=== PATIENT | female | born 1945 | race Caucasian/White ===

== ENCOUNTER 2021-01-04 10:28 | Inpatient (IN) | payer OTHER ==
[~2021-01-04] VITALS: Ht 157.5 cm; Wt 82.5 kg
[2021-01-04] MEDS ORDERED: SODIUM CHLORIDE 0.9% 500 ML IV ONE (10:45)
[2021-01-04 11:54] LABS: Basophils # (auto) 0 10 ^3/uL (0-0.2); Basophils % (auto) 0.1 % (0.0-2.0); Eosinophils # (auto) 0 10 ^3/uL (0-0.8); Hematocrit 34.9 % (36.0-46.0); Hemoglobin 11.5 g/dL (12.2-16.2); Lymphocytes # (auto) 0.5 10 ^3/uL (0.4-5.4); Mean Corpuscular Hemoglobin 29.3 pg (28.0-32.0); Mean Corpuscular Hgb Conc. 32.8 g/dL (32.0-36.0); Mean Corpuscular Volume 89.2 fL (80.0-100.0); Monocytes # (auto) 0.5 10 ^3/uL (0-1.3); Monocytes % (auto) 2.9 % (0.0-12.0); Neutrophils # (auto) 15.5 10 ^3/uL (1.6-8.6); Platelet Count (auto) 177 10^3/uL (140-450); Red Blood Cells 3.92 10^6/uL (4.0-5.20); Red Cell Distribution Width 15.1 % (11.8-14.3); White Blood Cell 16.5 10^3/uL (4.4-10.8)
[2021-01-04 12:15] LABS: Albumin 2.9 g/dL (3.4-5.0); Calcium 7.9 mg/dL (8.5-10.1); Potassium 3.7 mmol/L (3.5-5.1)
[2021-01-04 12:19] LABS: BUN/Creatinine Ratio 22.2; Bilirubin, Total 1.4 mg/dL (0.2-1.0)
[2021-01-04] MEDS ORDERED: cefTRIAXone 1GM/50ML D5W 50 ML IV ONE (12:30)
[2021-01-04 13:41] LABS: Urine Bacteria FEW /hpf (None Seen); Urine Blood TRACE /uL (Negative); Urine Specific Gravity 1.015 (1.001-1.035); Urine WBC 68 /hpf (0 - 5); Urine WBC Clumps PRESENT /hpf (None Seen)
[2021-01-04] MEDS ORDERED: ACETAMINOPHEN 325 MG TAB PO ONE (15:00)
[2021-01-04] MEDS ORDERED: MORPHINE SULF INJ 2 MG/ML SYRINGE 1ML IV ONE (19:45)
[2021-01-04] MEDS ORDERED: ONDANSETRON HCL 4 MG/2 ML VIAL IV ONE (19:45)
[2021-01-04] MEDS ORDERED: NITROGLYCERIN 0.4 MG SL TAB SL PRN (21:30)
[2021-01-04] MEDS ORDERED: TEMAZEPAM 15 MG CAP PO PRN (21:30)
[2021-01-04] MEDS ORDERED: ALBUMIN 5% 250 ML IV ONE (21:30)
[2021-01-04] MEDS ORDERED: MORPHINE SULF INJ 2 MG/ML SYRINGE 1ML IV PRN (21:30)
[2021-01-04] MEDS ORDERED: ONDANSETRON HCL 4 MG/2 ML VIAL IV PRN (21:30)
[2021-01-04] MEDS: FAMOTIDINE 20 MG TAB PO SCH (22:33)
[2021-01-04] MEDS: SODIUM CHLORIDE 0.9% 1,000 ML IV SCH (22:33)
[2021-01-04 23:11] VITALS: BP 114/54
[2021-01-05 05:00] VITALS: BP 106/50
[2021-01-05 06:42] LABS: Basophils # (auto) 0 10 ^3/uL (0-0.2); Basophils % (auto) 0.1 % (0.0-2.0); Eosinophils # (auto) 0.1 10 ^3/uL (0-0.8); Eosinophils % (auto) 0.3 % (0.0-7.0); Hematocrit 27.6 % (36.0-46.0); Hemoglobin 9.2 g/dL (12.2-16.2); Lymphocytes # (auto) 0.8 10 ^3/uL (0.4-5.4); Lymphocytes % (auto) 4.5 % (10.0-50.0); Mean Corpuscular Hemoglobin 30.6 pg (28.0-32.0); Mean Corpuscular Hgb Conc. 33.4 g/dL (32.0-36.0); Mean Corpuscular Volume 91.5 fL (80.0-100.0); Monocytes # (auto) 0.6 10 ^3/uL (0-1.3); Monocytes % (auto) 3.2 % (0.0-12.0); Neutrophils # (auto) 15.8 10 ^3/uL (1.6-8.6); Neutrophils % (auto) 91.9 % (37.0-80.0); Platelet Count (auto) 137 10^3/uL (140-450); Red Blood Cells 3.01 10^6/uL (4.0-5.20); Red Cell Distribution Width 15.3 % (11.8-14.3); White Blood Cell 17.2 10^3/uL (4.4-10.8)
[2021-01-05 07:02] LABS: Albumin 2.2 g/dL (3.4-5.0); Calcium 6.6 mg/dL (8.5-10.1); Potassium 3.5 mmol/L (3.5-5.1)
[2021-01-05 07:06] LABS: BUN/Creatinine Ratio 26.4; Total Protein 4.7 g/dL (6.4-8.2)
[2021-01-05 09:00] VITALS: BP 94/44
[2021-01-05] MEDS: cefTRIAXone 1GM/50ML D5W 50 ML IV SCH (09:24)
[2021-01-05] MEDS: FAMOTIDINE 20 MG TAB PO SCH ×2 (09:25→22:14)
[2021-01-05] MEDS ORDERED: ENOXAPARIN SOD 40 MG/0.4 ML SYRINGE SC SCH (10:00)
[2021-01-05] MEDS ORDERED: ATOR20TA50 PO (10:25)
[2021-01-05] MEDS ORDERED: CARV12.544 PO (10:25)
[2021-01-05] MEDS ORDERED: LOSA25TA38 PO (10:25)
[2021-01-05] MEDS ORDERED: HYDR-4902 PO (10:25)
[2021-01-05] MEDS ORDERED: PANT40TA2 PO (10:25)
[2021-01-05] MEDS ORDERED: FURO1TAB31 PO (10:25)
[2021-01-05] MEDS ORDERED: POTA8TAB2 PO (10:25)
[2021-01-05 11:34] VITALS: BP 124/50
[2021-01-05] MEDS: HYDROcodone-ACET 5/325MG TAB PO PRN ×2 (11:34→20:17)
[2021-01-05 13:00] VITALS: BP 109/49
[2021-01-05] MEDS: SODIUM CHLORIDE 0.9% 1,000 ML IV SCH (15:37)
[2021-01-05] MEDS: ACETAMINOPHEN 325 MG TAB PO PRN (15:37)
[2021-01-05 17:00] VITALS: BP 99/44
[2021-01-05 22:00] VITALS: BP 109/55
[2021-01-06] MEDS: ACETAMINOPHEN 325 MG TAB PO PRN (00:45)
[2021-01-06 05:00] VITALS: BP 124/54
[2021-01-06] MEDS: HYDROcodone-ACET 5/325MG TAB PO PRN ×2 (06:15→10:30)
[2021-01-06] MEDS: SODIUM CHLORIDE 0.9% 1,000 ML IV SCH (06:50)
[2021-01-06 06:52] LABS: Basophils # (auto) 0 10 ^3/uL (0-0.2); Basophils % (auto) 0.4 % (0.0-2.0); Eosinophils # (auto) 0.3 10 ^3/uL (0-0.8); Eosinophils % (auto) 2.2 % (0.0-7.0); Hematocrit 28.5 % (36.0-46.0); Hemoglobin 9.5 g/dL (12.2-16.2); Lymphocytes # (auto) 0.9 10 ^3/uL (0.4-5.4); Lymphocytes % (auto) 7.9 % (10.0-50.0); Mean Corpuscular Hgb Conc. 33.4 g/dL (32.0-36.0); Mean Corpuscular Volume 89.9 fL (80.0-100.0); Monocytes # (auto) 0.5 10 ^3/uL (0-1.3); Monocytes % (auto) 4.3 % (0.0-12.0); Neutrophils # (auto) 10.2 10 ^3/uL (1.6-8.6); Neutrophils % (auto) 85.2 % (37.0-80.0); Nucleated Red Blood Cells % 0.1 %; Platelet Count (auto) 139 10^3/uL (140-450); Red Blood Cells 3.17 10^6/uL (4.0-5.20); Red Cell Distribution Width 15.2 % (11.8-14.3)
[2021-01-06 07:03] LABS: Calcium 7.7 mg/dL (8.5-10.1); Potassium 3.6 mmol/L (3.5-5.1)
[2021-01-06 09:00] VITALS: BP 134/79
[2021-01-06] MEDS: cefTRIAXone 1GM/50ML D5W 50 ML IV SCH (09:00)
[2021-01-06] MEDS: FAMOTIDINE 20 MG TAB PO SCH (09:38)
[2021-01-06 13:00] VITALS: BP 115/76
[2021-01-06 17:21] VITALS: BP 105/51
[2021-01-06 22:00] VITALS: BP 124/64
[2021-01-07] MEDS: HYDROcodone-ACET 5/325MG TAB PO PRN ×2 (01:24→13:53)
[2021-01-07 05:00] VITALS: BP 112/61
[2021-01-07 07:18] LABS: Basophils # (auto) 0 10 ^3/uL (0-0.2); Basophils % (auto) 0.3 % (0.0-2.0); Eosinophils # (auto) 0.3 10 ^3/uL (0-0.8); Eosinophils % (auto) 3.5 % (0.0-7.0); Hematocrit 31.9 % (36.0-46.0); Hemoglobin 10.8 g/dL (12.2-16.2); Lymphocytes # (auto) 1.2 10 ^3/uL (0.4-5.4); Lymphocytes % (auto) 13.2 % (10.0-50.0); Mean Corpuscular Hemoglobin 30.3 pg (28.0-32.0); Mean Corpuscular Hgb Conc. 33.8 g/dL (32.0-36.0); Mean Corpuscular Volume 89.8 fL (80.0-100.0); Monocytes # (auto) 0.4 10 ^3/uL (0-1.3); Neutrophils # (auto) 7.5 10 ^3/uL (1.6-8.6); Platelet Count (auto) 190 10^3/uL (140-450); Red Blood Cells 3.55 10^6/uL (4.0-5.20); Red Cell Distribution Width 15.5 % (11.8-14.3); White Blood Cell 9.5 10^3/uL (4.4-10.8)
[2021-01-07] MEDS: cefTRIAXone 1GM/50ML D5W 50 ML IV SCH (08:36)
[2021-01-07 09:00] VITALS: BP 143/76
[2021-01-07] MEDS ORDERED: FAMOTIDINE 20 MG TAB PO SCH (10:00)
[2021-01-07 11:53] VITALS: BP 122/72
[2021-01-07 13:00] VITALS: BP 144/85
== END 2021-01-07 14:30 | disposition home or self-care (01) | DRG 871 ==
LOC: EDBD 10:28 → ER 10:28 → TELE 21:20 → TELE-CENTR 23:11
PROVIDERS: ADMIT Nurse Practitioner; ATTEND Internal Medicine
DX: A41.9 Sepsis, unspecified organism (principal); E43 Unspecified severe protein-calorie malnutrition; N39.0 Urinary tract infection, site not specified; I50.42 Chronic combined systolic (congestive) and diastolic (congestive) heart failure; Z68.41 Body mass index [BMI] 40.0-44.9, adult; E66.01 Morbid (severe) obesity due to excess calories; Z20.822 Contact with and (suspected) exposure to COVID-19; D64.9 Anemia, unspecified; E78.5 Hyperlipidemia, unspecified; I11.0 Hypertensive heart disease with heart failure; Z83.3 Family history of diabetes mellitus; Z90.710 Acquired absence of both cervix and uterus; Z88.8 Allergy status to other drugs, medicaments and biological substances; Z85.3 Personal history of malignant neoplasm of breast
CPT/HCPCS: 36415; 71045; 80048; 80053; 81001; 83605; 83735; 85025; 85049; 87040; 87086; 87426; 93005; 93306; 96365; 96372; 97163; G0378; J0696; J2405

== ENCOUNTER 2022-02-01 11:41 | Inpatient (IN) | payer OTHER ==
[~2022-02-01] VITALS: Ht 157.5 cm; Wt 73.1 kg
[~2022-02-01 11:41] MED LIST: ATOR20TA50 PO; CARV12.544 PO; FURO1TAB31 PO; HYDR-4902 PO; LOSA25TA38 PO; PANT40TA2 PO; POTA8TAB2 PO
[2022-02-01 14:05] LABS: Basophils # (auto) 0 10 ^3/uL (0-0.2); Basophils % (auto) 0.1 % (0.0-2.0); Eosinophils # (auto) 0.3 10 ^3/uL (0-0.8); Eosinophils % (auto) 1.3 % (0.0-7.0); Hemoglobin 9.1 g/dL (12.2-16.2); Lymphocytes # (auto) 0.9 10 ^3/uL (0.4-5.4); Lymphocytes % (auto) 4.2 % (10.0-50.0); Mean Corpuscular Hemoglobin 30.1 pg (28.0-32.0); Mean Corpuscular Hgb Conc. 32.5 g/dL (32.0-36.0); Mean Corpuscular Volume 92.5 fL (80.0-100.0); Monocytes # (auto) 0.4 10 ^3/uL (0-1.3); Monocytes % (auto) 1.6 % (0.0-12.0); Neutrophils # (auto) 19.9 10 ^3/uL (1.6-8.6); Neutrophils % (auto) 92.8 % (37.0-80.0); Red Blood Cells 3.03 10^6/uL (4.0-5.20); White Blood Cell 21.5 10^3/uL (4.4-10.8)
[2022-02-01 14:37] LABS: Calcium 7.3 mg/dL (8.5-10.1); Magnesium 2.4 mg/dL (1.6-2.6)
[2022-02-01 14:40] LABS: Total Protein 5.1 g/dL (6.4-8.2)
[2022-02-01 14:40] LABS: Urine Bacteria MOD /hpf (None Seen); Urine Blood Negative /uL (Negative); Urine Specific Gravity 1.015 (1.001-1.035); Urine WBC 6 /hpf (0 - 5)
[2022-02-01] MEDS ORDERED: AZITHROMYCIN 500MG/ 250ML 250 ML IV ONE (16:15)
[2022-02-01] MEDS ORDERED: cefTRIAXone 1GM/50ML D5W 50 ML IV ONE (16:15)
[2022-02-01] MEDS: NOREPINEPHRINE 8 MG/250ML KIT 250 ML IV SCH (16:31)
[2022-02-01] MEDS ORDERED: PROMETHAZINE W/CODEINE 5 ML ORAL SYRUP PO ONE (16:45)
[2022-02-01] MEDS ORDERED: SODIUM CHLORIDE 0.9% 500 ML IV ONE (17:00)
[2022-02-01] MEDS ORDERED: MORPHINE SULFATE INJ 2 MG/ml SYRG IV PRN (18:00)
[2022-02-01] MEDS ORDERED: ACETAMINOPHEN 325 MG TAB PO PRN (18:00)
[2022-02-01] MEDS: SODIUM CHLORIDE 0.9% 1,000 ML IV SCH (18:57)
[2022-02-01] MEDS: HYDROcodone-ACET 5/325MG TAB PO PRN (20:12)
[2022-02-02 02:08] LABS: Basophils # (auto) 0 10 ^3/uL (0-0.2); Basophils % (auto) 0.2 % (0.0-2.0); Eosinophils # (auto) 0.4 10 ^3/uL (0-0.8); Eosinophils % (auto) 1.8 % (0.0-7.0); Lymphocytes % (auto) 4.3 % (10.0-50.0); Mean Corpuscular Hgb Conc. 32.4 g/dL (32.0-36.0); Mean Corpuscular Volume 92.6 fL (80.0-100.0); Monocytes # (auto) 0.8 10 ^3/uL (0-1.3); Monocytes % (auto) 3.5 % (0.0-12.0); Neutrophils # (auto) 20.1 10 ^3/uL (1.6-8.6); Neutrophils % (auto) 90.2 % (37.0-80.0); Nucleated Red Blood Cells % 0.1 %; Red Blood Cells 3.35 10^6/uL (4.0-5.20); Red Cell Distribution Width 14.1 % (11.8-14.3); White Blood Cell 22.3 10^3/uL (4.4-10.8)
[2022-02-02] MEDS ORDERED: ONDANSETRON HCL 4 MG/2 ML VIAL IV PRN (02:15)
[2022-02-02 02:26] LABS: Calcium 7.7 mg/dL (8.5-10.1); Magnesium 2.3 mg/dL (1.6-2.6)
[2022-02-02] MEDS ORDERED: ENOXAPARIN SOD 100 MG/1 ML SYRINGE SC ONE (03:00)
[2022-02-02 05:47] LABS: Basophils # (auto) 0 10 ^3/uL (0-0.2); Basophils % (auto) 0.1 % (0.0-2.0); Eosinophils # (auto) 0.3 10 ^3/uL (0-0.8); Eosinophils % (auto) 1.5 % (0.0-7.0); Hematocrit 30.8 % (36.0-46.0); Hemoglobin 10.1 g/dL (12.2-16.2); Lymphocytes # (auto) 0.8 10 ^3/uL (0.4-5.4); Lymphocytes % (auto) 3.7 % (10.0-50.0); Mean Corpuscular Hemoglobin 30.4 pg (28.0-32.0); Mean Corpuscular Hgb Conc. 32.7 g/dL (32.0-36.0); Mean Corpuscular Volume 92.8 fL (80.0-100.0); Monocytes # (auto) 0.8 10 ^3/uL (0-1.3); Monocytes % (auto) 3.8 % (0.0-12.0); Neutrophils # (auto) 19.5 10 ^3/uL (1.6-8.6); Neutrophils % (auto) 90.9 % (37.0-80.0); Red Blood Cells 3.32 10^6/uL (4.0-5.20); Red Cell Distribution Width 14.1 % (11.8-14.3); White Blood Cell 21.4 10^3/uL (4.4-10.8)
[2022-02-02 05:54] LABS: Albumin 2.2 g/dL (3.4-5.0); Calcium 7.7 mg/dL (8.5-10.1); Potassium 3.7 mmol/L (3.5-5.1)
[2022-02-02 05:58] LABS: BUN/Creatinine Ratio 31.9; Bilirubin, Total 0.9 mg/dL (0.2-1.0); Total Protein 5.7 g/dL (6.4-8.2)
[2022-02-02] MEDS: NOREPINEPHRINE 8 MG/250ML KIT 250 ML IV SCH ×2 (08:49)
[2022-02-02] MEDS: ASPirin 81 mg TAB PO SCH (09:51)
[2022-02-02] MEDS ORDERED: cefTRIAXone 1GM/50ML D5W 50 ML IV SCH (10:00)
[2022-02-02] MEDS ORDERED: AZITHROMYCIN 500MG/ 250ML 250 ML IV SCH (10:00)
[2022-02-02] MEDS ORDERED: VANCOMYCIN PER PHARMACY 0 MG IV SCH (11:45)
[2022-02-02] MEDS ORDERED: VANCOMYCIN 1GM/250ML 250 ML IV ONE (12:45)
[2022-02-02] MEDS: SODIUM CHLORIDE 0.9% 1,000 ML IV SCH ×2 (12:47→20:42)
[2022-02-02] MEDS: CEFEPIME 1GM/ 50ML 50 ML IV SCH ×3 (14:00→23:12)
[2022-02-02] MEDS ORDERED: CARV3.1240 PO (21:14)
[2022-02-02 21:38] VITALS: BP 87/45
[2022-02-02 22:00] VITALS: BP 96/47
[2022-02-02 22:55] VITALS: BP 102/47
[2022-02-02] MEDS: ATORVASTATIN 20 MG TAB PO SCH (23:08)
[2022-02-03 05:00] VITALS: BP 123/56
[2022-02-03 05:25] LABS: Urine Bacteria FEW /hpf (None Seen); Urine Blood Negative /uL (Negative); Urine Specific Gravity 1.011 (1.001-1.035); Urine WBC 2 /hpf (0 - 5)
[2022-02-03] MEDS: VANCOMYCIN 1GM/250ML 250 ML IV SCH (06:18)
[2022-02-03] MEDS: HYDROcodone-ACET 5/325MG TAB PO PRN ×2 (06:20→15:35)
[2022-02-03] MEDS: CEFEPIME 1GM/ 50ML 50 ML IV SCH ×3 (07:00→22:50)
[2022-02-03 09:00] VITALS: BP 107/40
[2022-02-03] MEDS: ASPirin 81 mg TAB PO SCH (10:01)
[2022-02-03 13:00] VITALS: BP 112/56
[2022-02-03 13:30] LABS: Urine Bacteria FEW /hpf (None Seen); Urine Blood Negative /uL (Negative); Urine Specific Gravity 1.016 (1.001-1.035); Urine WBC 3 /hpf (0 - 5)
[2022-02-03] MEDS ORDERED: FURO20TA3 PO (14:54)
[2022-02-03 17:00] VITALS: BP 94/42
[2022-02-03 21:50] VITALS: BP 100/57
[2022-02-03] MEDS: ATORVASTATIN 20 MG TAB PO SCH (22:18)
[2022-02-04 04:47] VITALS: BP 113/68
[2022-02-04] MEDS: VANCOMYCIN 1GM/250ML 250 ML IV SCH (05:52)
[2022-02-04] MEDS: CEFEPIME 1GM/ 50ML 50 ML IV SCH ×3 (06:55→21:29)
[2022-02-04 07:16] LABS: Basophils # (auto) 0 10 ^3/uL (0-0.2); Basophils % (auto) 0.5 % (0.0-2.0); Eosinophils # (auto) 0.3 10 ^3/uL (0-0.8); Eosinophils % (auto) 4.5 % (0.0-7.0); Hematocrit 28.5 % (36.0-46.0); Hemoglobin 9.4 g/dL (12.2-16.2); Lymphocytes # (auto) 0.8 10 ^3/uL (0.4-5.4); Lymphocytes % (auto) 14.2 % (10.0-50.0); Mean Corpuscular Hemoglobin 30.2 pg (28.0-32.0); Mean Corpuscular Hgb Conc. 32.9 g/dL (32.0-36.0); Mean Corpuscular Volume 91.8 fL (80.0-100.0); Monocytes # (auto) 0.8 10 ^3/uL (0-1.3); Monocytes % (auto) 12.7 % (0.0-12.0); Neutrophils # (auto) 4.1 10 ^3/uL (1.6-8.6); Neutrophils % (auto) 68.1 % (37.0-80.0); Nucleated Red Blood Cells % 0.1 %; Red Cell Distribution Width 13.9 % (11.8-14.3)
[2022-02-04 07:36] LABS: Calcium 8.3 mg/dL (8.5-10.1); Potassium 3.4 mmol/L (3.5-5.1)
[2022-02-04 07:39] LABS: BUN/Creatinine Ratio 20.8
[2022-02-04 07:50] VITALS: BP 118/59
[2022-02-04 09:11] VITALS: BP 118/59
[2022-02-04] MEDS: HYDROcodone-ACET 5/325MG TAB PO PRN ×2 (09:47→21:29)
[2022-02-04] MEDS: ASPirin 81 mg TAB PO SCH (09:47)
[2022-02-04 13:00] VITALS: BP 142/73
[2022-02-04 17:11] VITALS: BP 113/57
[2022-02-04] MEDS: ATORVASTATIN 20 MG TAB PO SCH (21:29)
[2022-02-04 22:00] VITALS: BP 125/73
[2022-02-05 05:00] VITALS: BP 136/85
[2022-02-05] MEDS: VANCOMYCIN 1GM/250ML 250 ML IV SCH (06:20)
[2022-02-05] MEDS: CEFEPIME 1GM/ 50ML 50 ML IV SCH (07:57)
[2022-02-05 08:09] VITALS: BP 120/60
[2022-02-05 09:00] VITALS: BP 120/60
[2022-02-05] MEDS: ASPirin 81 mg TAB PO SCH (09:37)
[2022-02-05] MEDS: HYDROcodone-ACET 5/325MG TAB PO PRN (09:37)
[2022-02-05 13:00] VITALS: BP 114/50
[2022-02-05] MEDS ORDERED: AZIT250T8 PO (16:58)
[2022-02-05 17:00] VITALS: BP 113/59
[2022-02-05 17:01] VITALS: BP 113/59
[2022-02-05] MEDS ORDERED: CEFEPIME 1GM/ 50ML 50 ML IV SCH (22:00)
== END 2022-02-05 16:00 | disposition home or self-care (01) | DRG 871 ==
LOC: EDUNIT# 11:41 → ER 11:41 → EDBD 11:41 → OVERFLOW 17:49 → TELE 18:30 → TELE-WESTW 02-02 20:16 → WEST WING 02-02 20:21 → TELE-WESTW 02-02 23:57
PROVIDERS: ADMIT Internal Medicine; ATTEND Internal Medicine Nephrology
PROC: 05HB33Z Insertion of Infusion Device into Right Basilic Vein, Percutaneous Approach (ICD-10-PCS; principal; 2022-02-02)
PROC: B54MZZA Ultrasonography of Right Upper Extremity Veins, Guidance (ICD-10-PCS; 2022-02-02)
DX: A41.1 Sepsis due to other specified staphylococcus (principal); I21.A1 Myocardial infarction type 2; R65.21 Severe sepsis with septic shock; J15.9 Unspecified bacterial pneumonia; I13.0 Hypertensive heart and chronic kidney disease with heart failure and stage 1 through stage 4 chronic kidney disease, or unspecified chronic kidney disease; I50.22 Chronic systolic (congestive) heart failure; D64.9 Anemia, unspecified; E66.9 Obesity, unspecified; E78.5 Hyperlipidemia, unspecified; E86.1 Hypovolemia; Z20.822 Contact with and (suspected) exposure to COVID-19; N18.32 Chronic kidney disease, stage 3b; Z85.3 Personal history of malignant neoplasm of breast; Z90.710 Acquired absence of both cervix and uterus; Z79.899 Other long term (current) drug therapy; Z83.3 Family history of diabetes mellitus; Z88.8 Allergy status to other drugs, medicaments and biological substances; Z68.29 Body mass index [BMI] 29.0-29.9, adult
CPT/HCPCS: 36415; 71045; 80048; 80053; 80202; 81001; 82565; 83036; 83605; 83735; 83880; 84443; 84484; 85025; 87040; 87077; 87086; 87186; 93005; 93306; 96365; 96367; 97163; G0378; J0696; J2405